=== PATIENT | female | born 1970 ===

== ENCOUNTER 2017-09-10 15:46 | Emergency (ER) | payer OTHER ==
[2017-09-10 15:58] VITALS: BP 176/96; PULSE 97; RESP 16; TEMP 98.6; O2SAT 99
--- NOTE | 2017-09-10 16:51 | RAD ---
PROCEDURE: Radiographs of the Right Shoulder HISTORY: pain COMPARISON: None available. FINDINGS: BONES: No acute displaced fracture. The distal clavicle and underlying ribs appear intact. JOINTS: No acute dislocation. Coarse calcifications adjacent to the right humeral head consistent with calcific tendinitis. SOFT TISSUES: Soft tissues appear unremarkable. No evidence of radiopaque foreign body. IMPRESSION: Coarse calcifications adjacent to the right humeral head consistent with calcific tendinitis. No acute displaced fracture or dislocation evident. If symptoms persist or if there is continued clinical concern, x-ray follow-up in 7-10 days should be considered.
--- NOTE | 2017-09-10 16:59 | ED PDOC ---
Upper Extremity Pain/Injury Time Seen by Provider: 09/10/17 15:58 Chief Complaint (Nursing): Upper Extremity Problem/Injury Chief Complaint (Provider): Right Shoulder Pain History Per: Patient History/Exam Limitations: no limitations Onset/Duration Of Symptoms: Days (6 days ago) Current Symptoms Are (Timing): Still Present Additional Complaint(s): 47 y/o female presents to the ED complaining of atraumatic right shoulder pain that worsens with movement, onset of 6 days. Patient was recently seen at [facility] ED 2 days ago where she was given a shot of pain medication, which helped temporarily. Patient also states that no imaging test were done. Of note , patient has been taking Motrin at home with no relief and his right hand dominant. She denies chest pain, shortness of breath, weakness, numbness or tingling. Past Medical History Reviewed: Historical Data, Nursing Documentation, Vital Signs Vital Signs: Last Vital Signs Temp 98.6 F 09/10/17 15:55 Pulse 97 H 09/10/17 15:55 Resp 16 09/10/17 15:55 BP 176/96 H 09/10/17 15:55 Pulse Ox 99 09/10/17 15:55 - Medical History PMH: No Chronic Diseases - Surgical History Surgical History: No Surg Hx - Family History Family History: States: No Known Family Hx - Social History Current smoker - smoking cessation education provided: No Ex-Smoker (has not smoked in the last 12 months): No Alcohol: None Drugs: Denies - Home Medications Home Medications: Ambulatory Orders Medication Instructions Recorded Meloxicam [Mobic] 1 - 2 tab PO DAILY PRN #10 tab 09/10/17 - Allergies Allergies/Adverse Reactions: Allergies Allergy/AdvReac Type Severity Reaction Status Date / Time No Known Allergies Allergy Verified 09/10/17 15:58 Review of Systems ROS Statement: Except As Marked, All Systems Reviewed And Found Negative Constitutional: Negative for: Fever Musculoskeletal: Positive for: Shoulder Pain (right shoulder pain) Physical Exam - Reviewed Nursing Documentation Reviewed: Yes Vital Signs Reviewed: Yes - Physical Exam Appears: Positive for: In Acute Distress (mild painful distress) Pulses-Radial (L): 2+ Pulses-Radial (R): 2+ Extremity: Positive for: Tenderness (moderate right lateral shoulder tenderness) , Capillary Refill (less than 2 seconds), Other (equal railcar switchman strength bilaterally ). Negative for: Deformity - ECG O2 Sat by Pulse Oximetry: 99 (RA) Pulse Ox Interpretation: Normal Medical Decision Making Medical Decision Making: Time: --16:08 Impression: --Atraumatic Shoulder Pain Plan: --Toradol 30 mg IM Reassess --16:35 FINDINGS: SHOULDER X-RAY BONES: No acute displaced fracture. The distal clavicle and underlying ribs appear intact. JOINTS: No acute dislocation. Coarse calcifications adjacent to the right humeral head consistent with calcific tendinitis. SOFT TISSUES: Soft tissues appear unremarkable. No evidence of radiopaque foreign body. IMPRESSION: Coarse calcifications adjacent to the right humeral head consistent with calcific tendinitis. No acute displaced fracture or dislocation evident. If symptoms persist or if there is continued clinical concern, x-ray follow-up in 7-10 days should be considered. Scribe Attestation: Documented by Flako Cunha acting as a scribe for FRANK Stanton. Disposition - Clinical Impression Clinical Impression: Shoulder tendonitis - Patient ED Disposition Is Patient to be Admitted: No - Disposition Referrals: Tyson Arana MD [Medical Doctor] - [facility] [place] [Outside] Disposition: Routine/Home Disposition Time: 17:18 Condition: STABLE Prescriptions: Meloxicam [Mobic] 1 - 2 tab PO DAILY PRN #10 tab PRN Reason: Pain Instructions: Calcific Tendinitis (ED) Forms: [facility] (Nepali) Print Language: BRUNEIAN
== END 2017-09-10 17:30 | disposition home or self-care (01) ==
LOC: H.ER 15:46
DX: M75.80 Other shoulder lesions, unspecified shoulder (principal)
CPT/HCPCS: 73030; 96372; 99282; J1885

== ENCOUNTER 2019-02-05 18:01 | Emergency (ER) | payer OTHER ==
[2019-02-05 18:01] VITALS: BMI 26.2
[2019-02-05 18:27] VITALS: TEMP 98.3
[2019-02-05] MEDS ORDERED: Sodium Chloride 0.9% 1,000 ML IV STA (19:01)
--- NOTE | 2019-02-05 19:26 | ED PDOC ---
HPI: Abdomen Time Seen by Provider: 02/05/19 18:32 Chief Complaint (Nursing): Abdominal Pain Chief Complaint (Provider): abd pain History Per: Patient History/Exam Limitations: no limitations Onset/Duration Of Symptoms: Other (5 months, but intermittent. Today more severe and persistent.) Current Symptoms Are (Timing): Still Present Location Of Pain/Discomfort: RUQ (to R flank) Associated Symptoms: Chills, Nausea, Loss Of Appetite, Constipation. denies: Fever, Vomiting, Diarrhea, Urinary Symptoms Exacerbating Factors: None Alleviating Factors: None Past Medical History Reviewed: Historical Data, Nursing Documentation, Vital Signs Vital Signs: Last Vital Signs Temp 98.3 F 02/05/19 18:25 Pulse 78 02/05/19 18:25 Resp 16 02/05/19 18:25 BP 146/74 02/05/19 18:25 Pulse Ox 100 02/05/19 18:25 Primary Care Provider: FAMILY PROVIDER,NO - Medical History PMH: HTN - Surgical History Other surgeries: Tubal ligation - Family History Family History: States: No Known Family Hx - Social History Current smoker - smoking cessation education provided: No Alcohol: None - Immunization History Hx Tetanus Toxoid Vaccination: No Hx Influenza Vaccination: No Hx Pneumococcal Vaccination: No - Home Medications Home Medications: Ambulatory Orders Medication Instructions Recorded Meloxicam [Mobic] 1 - 2 tab PO DAILY PRN #10 tab 09/10/17 Ibuprofen [Motrin] 600 mg PO Q8 #30 tab 02/11/18 Lisinopril [Zestril] 1 tab PO DAILY 02/11/18 Omeprazole Magnesium [Prilosec Otc] 20 mg PO DAILY #30 tcp 02/05/19 Ondansetron ODT [Zofran ODT] 1 odt PO Q6 PRN #20 odt 02/05/19 Polyethylene Glycol 3350 [Miralax] 17 gm PO DAILY PRN #1 bottle 02/05/19 - Allergies Allergies/Adverse Reactions: Allergies Allergy/AdvReac Type Severity Reaction Status Date / Time No Known Allergies Allergy Verified 02/05/19 18:25 Review of Systems ROS Statement: Except As Marked, All Systems Reviewed And Found Negative (and as per HPI) Cardiovascular: Positive for: Chest Pain. Negative for: Light Headedness Gastrointestinal: Positive for: Nausea, Abdominal Pain, Constipation. Negative for: Vomiting, Diarrhea, Melena, Hematochezia, Hematemesis, Rectal Pain Physical Exam - Reviewed Nursing Documentation Reviewed: Yes Vital Signs Reviewed: Yes - Physical Exam Appears: Positive for: Uncomfortable, In Acute Distress Head Exam: Positive for: ATRAUMATIC, NORMOCEPHALIC Skin: Positive for: Warm, Dry Eye Exam: Positive for: EOMI, PERRL ENT: Positive for: Pharynx Is (clear) Neck: Positive for: Painless ROM, Supple Cardiovascular/Chest: Positive for: Regular Rate, Rhythm. Negative for: Murmur Respiratory: Positive for: Normal Breath Sounds. Negative for: Respiratory Distress Gastrointestinal/Abdominal: Positive for: Soft, Tenderness (RUQ ). Negative for: Mass, Distended, Guarding, Rebound Back: Positive for: R CVA Tenderness Extremity: Positive for: Normal ROM. Negative for: Deformity Lymphatic: Negative for: Adenopathy Neurological/Psych: Positive for: Awake, Alert. Negative for: Motor/Sensory Deficits - Laboratory Results Result Diagrams: 02/05/19 19:40 02/05/19 19:40 - ECG O2 Sat by Pulse Oximetry: 100 Medical Decision Making Medical Decision Making: History RUQ/flank pain. Comparison None. Technique Sonographic evaluation of the right upper quadrant of the abdomen. Findings Liver Measures 15.2 cm in length. Normal echogenicity of the liver parenchyma. No mass. No intrahepatic bile duct dilatation. Gallbladder Unremarkable. No gallstones. Wall thickness measures 0.2 cm. Common bile duct Measures 3 mm. No stones. No dilatation. Pancreas Unremarkable as visualized. No mass. No ductal dilatation. Right kidney Measures 11.8 x 4 x 3.9 cm in length. Normal echogenicity. No calculus, mass, or hydronephrosis. Other Findings None. Impression Normal study. Electronically signed on February 05, 2019 9:16:10 PM EDT by: Scotty Erickson M.D., M.B.A., Certified By [employer] Trained MRI and CT Specialist Xray c/w constipation, no dilated bowel, no air fluid levels. Labs unremarkable. Fleet ordered. Pt had small bowel movement in ER. Pt to be discharged with miralax and strict instructions to followup with PMD for possible GI referral. Disposition - Clinical Impression Clinical Impression: Abdominal pain, Constipation - Disposition Referrals: Dave Zaldivar DO [[facility]] - 02/06/19 Disposition: Routine/Home Disposition Time: 23:00 Condition: IMPROVED Prescriptions: Omeprazole Magnesium [Prilosec Otc] 20 mg PO DAILY #30 tcp Ondansetron ODT [Zofran ODT] 1 odt PO Q6 PRN #20 odt PRN Reason: Nausea/Vomiting Polyethylene Glycol 3350 [Miralax] 17 gm PO DAILY PRN #1 bottle PRN Reason: Constipation Instructions: Constipation, Adult (DC), Acute Abdomen (Belly Pain), Adult (DC) Forms: [facility] ED School/Work Excuse Print Language: QATARI
[2019-02-05 20:04] LABS: BASO # 0.1 K/uL (0.0-0.2); BASO % 0.9 % (0.0-2.0); EOS # 0.1 K/uL (0.0-0.7); EOS % 1.9 % (0.0-4.0); HEMOGLOBIN 12.6 g/dL (12.0-16.0); LYMPH % 34.2 % (20.0-40.0); MEAN CELL VOLUME 88.2 fl (81.0-99.0); MEAN CORPUSCULAR HEMOGLOBIN 28.9 pg (27.0-31.0); MEAN CORPUSCULAR HGB CONC 32.8 g/dL (33.0-37.0); MEAN PLATELET VOLUME 9.7 fl (7.2-11.7); MONO # 0.5 K/uL (0.0-0.8); MONO % 7.7 % (0.0-10.0); NEUT # 3.3 K/uL (1.8-7.0); NEUT % 55.3 % (50.0-75.0); NRBC % 0.1 % (0.0-0.0); RBC 4.35 Mil/uL (3.80-5.20); RED CELL DISTRIBUTION WIDTH 14.2 % (11.5-14.5); WHITE BLOOD COUNT 5.9 K/uL (4.8-10.8)
[2019-02-05 20:08] LABS: PROTHROMBIN TIME 11.7 Seconds (9.8-13.1)
[2019-02-05 20:11] LABS: PARTIAL THROMBOPLASTIN TIME 39.2 Seconds (25.6-37.1)
[2019-02-05 20:12] LABS: ALB/GLOB RATIO 1.3 (1.0-2.1); ALBUMIN 4.6 g/dL (3.5-5.0); ALT/SGPT 25 U/L (9-52); AST/SGOT 28 U/L (14-36); BLOOD UREA NITROGEN 14 mg/dl (7-17); CALCIUM 9.3 mg/dL (8.4-10.2); GFR NON-AFRICAN AMERICAN > 60; LIPASE 72 U/L (23-300)
[2019-02-05 20:46] LABS: SQUAMOUS EPITHIAL 2 /hpf (0-5); URINE BACTERIA RARE (<OCC); URINE BILIRUBIN NEGATIVE (NEGATIVE); URINE BLOOD NEGATIVE (NEGATIVE); URINE CLARITY SLIGHTY-CLOUDY (Clear); URINE COLOR YELLOW (YELLOW); URINE GLUCOSE (UA) NEG (NEGATIVE); URINE LEUKOCYTE ESTERASE NEG Leu/uL (Negative); URINE PROTEIN NEGATIVE (NEGATIVE); URINE UROBILINOGEN 0.2-1.0 mg/dL (0.2-1.0)
[2019-02-05 23:54] VITALS: BP 133/82; PULSE 84; RESP 17
--- NOTE | 2019-02-06 09:36 | US ---
Date of service: 02/05/2019 HISTORY: RUQ/R flank pain COMPARISON: None. TECHNIQUE: Sonographic evaluation of the right upper quadrant of the abdomen. FINDINGS: LIVER: Measures 15.2 cm in length. Normal echogenicity of the liver parenchyma. No mass. No intrahepatic bile duct dilatation. GALLBLADDER: Unremarkable. No gallstones. COMMON BILE DUCT: Measures 3 mm. No stones. No dilatation. PANCREAS: Unremarkable as visualized. No mass. No ductal dilatation. RIGHT KIDNEY: Measures 11.8 x 4.0 x 3.9 cm in length. Normal echogenicity. No calculus, mass, or hydronephrosis. AORTA: No aneurysmal dilatation. IVC: Unremarkable. OTHER FINDINGS: None . IMPRESSION: Negative exam. No hydronephrosis. No shadowing right renal calculi. Concordant results (preliminary interpretation) provided by [employer].
--- NOTE | 2019-02-06 10:00 | RAD ---
Date of service: 02/05/2019 PROCEDURE: Radiographs of the chest and abdomen (obstructive series) HISTORY: abd pain r/o sbo COMPARISON: No prior. TECHNIQUE: AP radiograph of the chest, with upright and supine radiographs of the abdomen. 3 views obtained. FINDINGS: CHEST: Lungs: Clear. Cardiovascular: Normal size heart. No pulmonary vascular congestion. No aortic atherosclerotic calcification present Pleura: No pleural fluid. No pneumothorax. Other findings: Thoracic spondylosis. ABDOMEN AND PELVIS: Bowel: Moderate stool retention.. No evidence of mechanical obstruction. Free air: None. Bones: Thoraco lumbar spondylosis. Transitional elements at the thoraco lumbar and lumbosacral junction suggested. Other findings: Bilateral hemipelvic phleboliths. Sub cm calcification ossification borders the left greater trochanter trochanteric bursitis/trochanteric calcific tendinopathy here are some considerations. IMPRESSION: No acute pulmonary infiltrate. No bowel obstruction. Moderate stool retention. Other findings as above.
[2019-02-06 15:25] VITALS: O2SAT 100
== END 2019-02-05 23:31 | disposition home or self-care (01) ==
LOC: H.ER 18:01
DX: R10.9 Unspecified abdominal pain (principal); K59.00 Constipation, unspecified
CPT/HCPCS: 74022; 76705; 80053; 81003; 81025; 83605; 83690; 85025; 85610; 85730; 86850; 86900; 87040; 87086; 96361; 96374; 96375; 99284; J1885; J2405; J7030